=== PATIENT | female | born 1940 | race Caucasian/White ===

== ENCOUNTER → 2016-12-02 | Outpatient (CLI) | payer MEDICARE, OTHER ==
[2016-12-02 14:19] LABS: HEMOGLOBIN 11.7 g/dL (12.2-16.2); LYMPH # 1.2 K/mm3 (0.7-4.5); LYMPH % 26.1 % (10-50.0)
[2016-12-02 14:25] LABS: BUN 28 mg/dL (7-18)
[2016-12-02 14:26] LABS: GFR (ESTIMATED) 40 ML/MIN (59-)
== END ==
LOC: CARL-LAB 08:58
PROVIDERS: Internal Medicine Adolescent Medicine
DX: M15.9 Polyosteoarthritis, unspecified (principal); I10 Essential (primary) hypertension; E03.9 Hypothyroidism, unspecified